=== PATIENT | male | born 1955 | race Caucasian/White ===

== ENCOUNTER 2016-11-21 00:35 | Emergency (ER) | payer MEDICARE ==
[~2016-11-21] VITALS: Ht 180.3 cm; Wt 80.7 kg
[2016-11-21 00:49] VITALS: BP 138/65
[2016-11-21] MEDS ORDERED: traMADol 50 MG TABLET PO ONE (02:00)
--- NOTE | 2016-11-21 02:46 | ED.ADGEN ---
Past Medical History Past Medical History: Cancer, CHF, Diabetes-Type II, Seizure, Other Additional Past Medical Histor: scoliosis Past Surgical History: Other Additional Past Surgical Histo: exploratory abd surgery to dx CA, right wrist, carpal tunnel Alcohol Use: Heavy Drug Use: None Adult General Chief Complaint Chief Complaint: PAIN CONTROL HPI HPI Patient is a 61 year old woman, history of type 2 diabetes mellitus, pancreatic cancer, possible colon cancer, who presents to the emergency department via EMS with a complaint of pain. Patient states that he was seen at [facility] earlier today, and was told to follow-up with his doctor. He states that he follows at but "I don't like , and I'm moving to [place]". He states that he was receiving chemotherapy for his pancreatic cancer, but cannot give additional details, he states that he is planning to move to [place], and potentially be enrolled in hospice care, but states "they stated they need more information". Patient states that he is having "my cancer pain", which he states is located in his abdomen. His last bowel movement he states was earlier this evening. Patient has odor of alcohol, and states that he did drink beers this afternoon, he does drink daily. He states that previously he was taking oxycodone, but currently he is not being given any pain medication by his primary oncologist. He denies any fevers and chills, nausea vomiting, any weakness, numbness, tingling, chest pain, shortness of breath. He states his are his typical pain symptoms. He states they're located roughly in the right upper quadrant. He is unable to give additional details or history. Review of Systems Review of Systems Constitutional: Denies fever or chills. [] Eyes: Denies change in visual acuity. [] HENT: Denies nasal congestion or sore throat. [] Respiratory: Denies cough or shortness of breath. [] Cardiovascular: Denies chest pain or edema. [] GI: Denies nausea, vomiting, bloody stools or diarrhea. [] Complaining of right -sided abdominal pain, "cancer pain". : Denies dysuria. [] Musculoskeletal: Denies back pain or joint pain. [] Integument: Denies rash. [] Neurologic: Denies headache, focal weakness or sensory changes. [] Endocrine: Denies polyuria or polydipsia. [] Lymphatic: Denies swollen glands. [] Psychiatric: Denies depression or anxiety. [] Current Medications Current Medications Current Medications Medications (Trade) Dose Ordered Sig/[facility] Start Time Stop Time Status Last Admin Dose Admin Tramadol HCl (Ultram) 50 mg 1X ONCE 11/21/16 02:00 11/21/16 02:01 DC 11/21/16 02:12 50 MG Allergies Allergies Allergies Coded Allergies Type Severity Reaction Last Updated Verified No Known Drug Allergies 11/21/16 No Physical Exam Physical Exam Constitutional: Well developed, well nourished, no acute distress, non-toxic appearance. Patient sleeping upon my entry to the room, easily aroused. HENT: Normocephalic, atraumatic, bilateral external ears normal, oropharynx moist, no oral exudates, nose normal. [] Eyes: PERRLA, EOMI, conjunctiva normal, no discharge. [] Neck: Normal range of motion, no tenderness, supple, no stridor. [] Cardiovascular:Heart rate regular rhythm, no murmur, no rubs, no gallops, S1, S2. [] Lungs & Thorax: Bilateral breath sounds clear to auscultation, no wheezing, rhonchi, rales. No chest or crepitus or tenderness. [] Abdomen: Bowel sounds normal, soft, complaining of pain in the right upper quadrant mild tenderness to palpation, no masses, no pulsatile masses. [] Skin: Warm, dry, no erythema, no rash. [] Back: No tenderness, no CVA tenderness. [] Extremities: No tenderness, no cyanosis, no clubbing, ROM intact, no edema. [] Neurologic: Alert and oriented X 3, normal motor function, normal sensory function, no focal deficits noted. [] Psychologic: Affect normal, judgement normal, mood normal. [] Current Patient Data Vital Signs Vital Signs Date Time Temp Pulse Resp B/P (MAP) Pulse Ox O2 Delivery O2 Flow Rate FiO2 11/21/16 00:49 98.2 86 18 100 Room Air 98.2 EKG EKG ECG: Rhythm strip: Sinus rhythm, heart rate 86 beats/minute, no ectopy. As interpreted by me.[] Radiology/Procedures Radiology/Procedures Not indicated.[] Course & Med Decision Making Course & Med Decision Making Pertinent Labs and Imaging studies reviewed. (See chart for details) Patient well-appearing, is asleep when I entered the room, easily aroused, laughing and smiling. It is to drinking alcohol prior to coming to the ED today. I discussed with patient that I would need additional information regarding his diagnoses/treatment plan, and pain medication regimen, which he cannot provide, and that due to his use of alcohol, and his sleepiness, I will not be able to give him any narcotic medications. I did offer him tramadol, he states that he will take the tramadol, but that "it doesn't really work". He is unable to clearly localize pain. He states that he is planning on going to [place] "to be close to my family", but again he does not really have much detail regarding when or what treatment care will be. He appears comfortable, abdominal palpation he does grimace but then is again laughing and smiling, when distracted. Vital signs within normal limits, and he again falls back asleep, and is then easily aroused when I return to the room. Patient does not exhibit any acutely concerning signs at this time, and is requesting a way to get home, states he does not have someone to call to pick him up. Patient does live in [facility]. Discussed with patient that is now morning, and he will follow up with his oncologist, was given a dose of tramadol in the ED, we did discuss concerning symptoms that prompt return, importance of following up in establishing a better plan of care, and potential consequences of overuse of alcohol, patient did voice understanding and agreement. Patient was discharged with a cab pass to transport the patient home. Dragon Disclaimer Dragon Disclaimer This electronic medical record was generated, in whole or in part, using a voice recognition dictation system. Departure Impression: Primary Impression: Pain Disposition: HOME, SELF-CARE Condition: STABLE MARICARMEN HUMMEL DO Nov 21, 2016 02:46
== END 2016-11-21 02:31 | disposition home or self-care (01) ==
LOC: ER 00:35
DX: R10.11 Right upper quadrant pain (principal); E11.9 Type 2 diabetes mellitus without complications; I50.9 Heart failure, unspecified; F10.10 Alcohol abuse, uncomplicated
CPT/HCPCS: 99283